=== PATIENT | male | born 1960 | race Two or more races ===

== ENCOUNTER 2017-05-28 15:20 | Inpatient (IN) | payer MEDICAID ==
[2017-05-28] MEDS ORDERED: NITROGLYCERIN OINT 2% 1 INCH PACKET TP ONE (15:44)
[2017-05-28] MEDS ORDERED: Aspirin 81mg Chewable Tab ONE (15:45)
--- NOTE | 2017-05-28 15:54 | ED Physician Chart ---
ED Chief Complaint/HPI - Patient Information Date Seen:: 05/28/17 Time Seen:: 15:10 History of Present Illness:: THIS 56-YEAR-OLD MALE PRESENTED TO THE EMERGENCY DEPARTMENT WITH PRECORDIAL CHEST PAIN THAT HAD STARTED ABOUT ONE HOUR PRIOR TO ADMISSION. HE RATED THE SEVERITY OF THE PAIN AN 8/10 AND STATED THAT IT LASTED FOR SOMEWHERE BETWEEN 3 TO 5 MINUTES BEFORE DISAPPEARING. THE PAIN DID NOT RADIATE TO THE NECK, LEFT SHOULDER OR INTO THE LEFT UPPER EXTREMITY. THERE WERE NO EXACERBATING OR RELIEVING FACTORS. THE QUALITY OF THE PAIN WAS BURNING. THE PATIENT HAD NO PRIOR HISTORY OF SIMILAR EPISODES. AT THE TIME OF ONSET THE PATIENT HAD BEEN DRINKING ALCOHOL AND SMOKING MARIJUANA. FOLLOWING THE ONSET OF THE PAIN THE PATIENT HAD PALPITATIONS OF HIS HEART ASSOCIATED WITH LIGHTHEADEDNESS. HE DENIED ANY NAUSEA, VOMITING, DIAPHORESIS OR DIFFICULTY BREATHING. HE HAS NO HISTORY OF PRIOR HEART PROBLEMS BUT DOES HAVE HYPERTENSION. HE DENIES SMOKING TOBACCO BUT DOES SMOKE MARIJUANA.. Allergies:: Allergies Allergy/AdvReac Type Severity Reaction Status Date / Time No Known Allergies Allergy Verified 05/28/17 15:44 Vitals:: Vital Signs - 8 hr 05/28/17 15:44 Temp 98.7 F HR 86 RR 25 BP 177/101 O2 Sat % 98 ED Review of Systems - Review of Systems General/Constitutional: No fever, No chills, No weight loss, Weakness, No diaphoresis, No edema, No loss of appetite Skin: No skin lesions, No rash, No bruising Head: No headache, Light headed Eyes: No loss of vision, No pain, No diplopia ENT: No earache, No sore throat, No tinnitus Neck: No neck pain, No swelling, No stiffness, No mass noted Cardio Vascular: Chest pain, Palpitations, No PND, No orthopnea, No edema Pulmonary: No SOB, No cough, No sputum, Other ( ON NO HEMOPTYSIS) GI: No nausea, No vomiting, No diarrhea, No pain, No constipation, No hematemesis G/U: No dysuria, No frequency, No hematuria Musculoskeletal: No bone or joint pain, No back pain, No muscle pain Endocrine: No polyuria, No polydipsia Psychiatric: No prior psych history ED Past Medical History - Past Medical History Past Medical History: HTN Family History: None Social History: Smoker, Alcohol, Illicit Drug Use, Single Surgical History: None Psychiatricy History: Depression Medication: None Family Medical History - Family Member Mother History Unknown: Yes ED Physical Exam - Physical Examination General/Constitutional: Awake, Well-developed, well-nourished, Alert, No distress, Non-toxic appearing, Ambulatory Other Gen/Cons comments:: ODOR OF ALCOHOL ON HIS BREATH. Head: Atraumatic Eyes: Lids, conjuctiva normal, PERRL, EOMI Skin: No rash, No skin lesions, No ecchymosis, Well hydrated, No lymphadenopathy Other Skin comments:: SKIN WARM AND DRY WITH NORMAL COLOR. NO CYANOSIS. NO PALLOR. ENMT: External ears, nose nl, Nasal exam nl, Lips, teeth, gums nl, Oropharynx nl , Tonsils nl Neck: Nontender, Full ROM w/o pain, No nuchal rigidity, No bruit, No stridor Respiratory: Nl effort/Exclusion, Clear to Auscultation, No Wheeze/Rhonchi/Rales Other Respiratory comments:: NO CHEST WALL TENDERNESS. GOOD BREATH SOUNDS BILATERALLY. Cardio Vascular: RRR, No murmur, gallop, rubs, NL S1 S2 Other Cardio Vascular comments:: STRONG PULSES IN ALL FOUR EXTREMITIES. NO PERIPHERAL EDEMA.. GI: No organomegaly, No hernia, Normal BS's, Nondistended, No mass/bruits Extremities: Full ROM, normal strength in all extremities, No edema Other Extremities comments:: NO PERIPHERAL EDEMA. NO CALF TENDERNESS. NEGATIVE GUNTER'S SIGN Neuro/Psych: Alert/oriented, Normal sensory exam, Normal motor strength, Mood normal, Normal gait, No focal deficits Misc: Normal back, No paraspinal tenderness ED Labs/Radiology/EKG Results - Lab Results Results: Laboratory Tests 05/28/17 05/28/17 05/28/17 15:30 15:30 15:30 WBC 7.2 RBC 3.89 L Hgb 14.8 Hct 43.5 MCV 111.9 H MCH 38.0 H MCHC Differential 34.0 RDW 16.0 Plt Count 329 MPV 6.6 Neutrophils % 66.4 Lymphocytes % 25.3 Monocytes % 5.6 Eosinophils % 2.6 Basophils % 0.1 Sodium 137 Potassium 3.2 L Chloride 104 Carbon Dioxide 24.9 Anion Gap 11.3 BUN 15 Creatinine 0.8 Est GFR ( Amer) > 60.0 Est GFR (Non-Af Amer) > 60.0 BUN/Creatinine Ratio 18.8 Glucose 142 H POC Glucose Calcium 9.5 Troponin I < 0.01 L Urine Opiates Screen Urine Methadone Screen Ur Barbiturates Screen Ur Tricyclics Screen Ur Phencyclidine Scrn Amphetamines Screen U Methamphetamines Scrn U Benzodiazepines Scrn U Cocaine Metab Screen U Cannabinoids Screen Ethyl Alcohol < 10 05/28/17 05/28/17 05/28/17 15:30 21:49 23:30 WBC RBC Hgb Hct MCV MCH MCHC Differential RDW Plt Count MPV Neutrophils % Lymphocytes % Monocytes % Eosinophils % Basophils % Sodium Potassium Chloride Carbon Dioxide Anion Gap BUN Creatinine Est GFR ( Amer) Est GFR (Non-Af Amer) BUN/Creatinine Ratio Glucose POC Glucose 109 H Calcium Troponin I < 0.01 L Urine Opiates Screen NEGATIVE Urine Methadone Screen NEGATIVE Ur Barbiturates Screen NEGATIVE Ur Tricyclics Screen NEGATIVE Ur Phencyclidine Scrn NEGATIVE Amphetamines Screen NEGATIVE U Methamphetamines Scrn NEGATIVE U Benzodiazepines Scrn NEGATIVE U Cocaine Metab Screen NEGATIVE U Cannabinoids Screen POSITIVE H Ethyl Alcohol 05/29/17 07:30 WBC RBC Hgb Hct MCV MCH MCHC Differential RDW Plt Count MPV Neutrophils % Lymphocytes % Monocytes % Eosinophils % Basophils % Sodium Potassium Chloride Carbon Dioxide Anion Gap BUN Creatinine Est GFR ( Amer) Est GFR (Non-Af Amer) BUN/Creatinine Ratio Glucose POC Glucose Calcium Troponin I < 0.01 L Urine Opiates Screen Urine Methadone Screen Ur Barbiturates Screen Ur Tricyclics Screen Ur Phencyclidine Scrn Amphetamines Screen U Methamphetamines Scrn U Benzodiazepines Scrn U Cocaine Metab Screen U Cannabinoids Screen Ethyl Alcohol EKG INTERPRETATIONS: NORMAL SINUS RHYTHM AT A RATE OF 80 AND WITHOUT ECTOPY. NORMAL IN INTERVAL. NORMAL QR MANDAEN. NORMAL QT INTERVAL. AXIS NORMAL. NO CUE WAVES. NORMAL OUR WEIGHT PROGRESSION LEADS THE ONE THROUGH THE FIVE. NORMAL APPEARING T WAVES. NO ST SEGMENT ELEVATION OR DEPRESSION. IMPRESSION: NO ACUTE ISCHEMIC FINDINGS. ED Assessment - Assessment General Assessment: CASE SUMMARY: THIS 56-YEAR-OLD MALE WITH A HISTORY OF HYPERTENSION PRESENTS TO THE EMERGENCY DEPARTMENT COMPLAINING OF PRECORDIAL CHEST PAIN WHICH WAS BURNING IN NATURE AND NONRADIATING. THERE WAS NO PLEURITIC COMPONENT TO THE PAIN. PATIENT DESCRIBED THE PAIN BEING ANYWHERE FROM 7 TO 9 SEVERITY WITH NO EXACERBATING OR LEAVING FACTORS. THE CARDIOVASCULAR EXAMINATION WAS NORMAL. THE EKG SHOWED NO EVIDENCE OF ACUTE ISCHEMIA. THE PATIENT'S SYMPTOMS WERE ADDRESSED WITH PO ASPIRIN AND BOTH SUBLINGUAL AND TRANSDERMAL MITRAL GLYCERIN. THE PATIENT 'S INITIAL BLOOD PRESSURE WENT FROM 177/101 DOWN TO 120/80 AFTER ASPIRIN AND NITROGLYCERIN ADMINISTRATION. THE PATIENT WAS PAIN-FREE AT THIS POINT IN TIME. THE INITIAL TROPONIN CAME BACK AT 0.01. THE CASE WAS DISCUSSED WITH DR. BURDICK WHO WILL ADMIT THE PATIENT FOR FURTHER EVALUATION AND TREATMENT INDICATED. MDM DDX CHEST PAIN: NOT AORTIC DISSECTION BASED ON THE PATIENT'S HISTORY AND PHYSICAL EXAMINATION AND HIS RESPONSE TO NITROGLYCERIN. NOT PERICARDITIS BASED ON THE HISTORY, PHYSICAL EXAMINATION AND EKG FINDINGS. NOT PNEUMONIA BASED ON THE PATIENT'S HISTORY, PHYSICAL EXAMINATION AND LABORATORY STUDIES. Critical Care Time: 45 MIN Excludes all billable procedures: Yes This condition life threatening/high prob of deterioration: Yes Assessment/Comments:: THE PATIENT HAD SEVERE ACUTE PRECORDIAL CHEST PAIN WHICH WAS ACCOMPANIED BY HYPERTENSION IN THE 180 RANGE. THE PAIN AND HYPERTENSION WERE TREATED WITH COMBINED SUBLINGUAL AND TRANSDERMAL NITROGLYCERIN. THE PATIENT EXPERIENCE COMPLETE RELIEF OF PAIN AND RETURN OF BLOOD PRESSURE TO WITHIN NORMAL PARAMETERS. PATIENT WILL BE ADMITTED FOR FURTHER DIAGNOSTIC STUDIES. ED Septic Shock - . Is Septic Shock (SBP<90, OR Lactate>4 mmol\L) present?: No - <6hrs of presentation: Vital Signs: Vital Signs - 8 hr 05/28/17 15:44 Temp 98.7 F HR 86 RR 25 BP 177/101 O2 Sat % 98 ED Reassessment (Disposition) - Reassessment Reassessment Condition:: Improved - Diagnosis Diagnosis:: ACUTE CHEST PAIN/RULE OUT CARDIAC ISCHEMIA. HYPERTENSION - Aftercare/Follow up Instructions Aftercare/Follow-Up Instructions:: Counseled pt regarding lab results/diagnosis & need follow up - Patient Disposition Discharge/Transfer:: Acute Care w/in this hosp () Accepting Physician:: DR. BURDICK ED Discharge Plan - Patient Disposition Admit/Discharge/Transfer: Acute Care w/in this hosp
[2017-05-28] MEDS ORDERED: NITROGLYCERIN SPRAY 4.9 GM SL STA (15:58)
[2017-05-28] MEDS ORDERED: Aspirin 81mg Chewable Tab PO STA (15:59)
[2017-05-28 16:08] LABS: EOSINOPHILE ABSOLUTE 0.2 Th/cmm (0.1-0.4); LYMPHOCYTE ABSOLUTE 1.8 Th/cmm (1.5-3.0); MEAN PLATELET VOLUME 6.6 fl; MONOCYTE ABSOLUTE 0.4 Th/cmm (0.3-1.0); PLATELET COUNT 329 Th/cmm (150-400)
[2017-05-28] MEDS ORDERED: NITROGLYCERIN SPRAY 4.9 GM SL ONE (16:10)
[2017-05-28 16:21] LABS: % BASOPHILS 0.1 % (0.0-2.0); % EOSINOPHILS 2.6 % (0.0-5.0); % LYMPHOCYTES 25.3 % (20.0-50.0); % MONOCYTES 5.6 % (2.0-10.0); % NEUTROPHILS 66.4 % (40.0-80.0); HEMATOCRIT 43.5 % (41.0-60); HEMOGLOBIN 14.8 gm/dL (12-16); NEUTROPHILE ABSOLUTE 4.8 Th/cmm (1.8-8.0); RED BLOOD COUNT 3.89 Mil/cmm (4.30-5.70); WHITE BLOOD COUNT 7.2 Th/cmm (4.8-10.8)
[2017-05-28 16:48] LABS: MEAN CELL VOLUME 111.9 fl (80-99)
[2017-05-28 21:25] LABS: ANION GAP 11.3 (7.0-16.0); BUN - UREA NITROGEN 15 mg/dL (7-25); CALCIUM SERUM 9.5 mg/dL (8.6-10.3); CARBON DIOXIDE 24.9 mEq/L (21.0-31.0); CHLORIDE 104 mEq/L (98-107); CREATININE - SERUM 0.8 mg/dL (0.7-1.3); GFR AFRICAN-AMERICAN > 60.0 ml/min (>90); GFR NON AFRICAN-AMERICAN > 60.0 ml/min; GLUCOSE 142 mg/dL (70-105); POTASSIUM SERUM 3.2 mEq/L (3.5-5.1); SODIUM SERUM 137 mEq/L (136-145)
[2017-05-28 22:47] LABS: AMPHETAMINE URINE NEGATIVE (NEGATIVE); BARBITURATES URINE NEGATIVE (NEGATIVE); BENZODIAZEPINES QUAL URINE NEGATIVE (NEGATIVE); CANNABINOID THC POSITIVE (NEGATIVE); COCAINE METABOLITE QUAL URINE NEGATIVE (NEGATIVE); METHADONE URINE NEGATIVE (NEGATIVE); METHAMPHETAMINES QUAL URINE NEGATIVE (NEGATIVE); OPIATES (MORPHINE) QUAL. URINE NEGATIVE (NEGATIVE); PHENCYCLIDINE (PCP) URINE NEGATIVE (NEGATIVE); TRICYCLICS (TCA) QUAL. URINE NEGATIVE (NEGATIVE)
[2017-05-29] MEDS ORDERED: Potassium Chloride 20 mEq ER Tab PO ONE (09:30)
[2017-05-29] MEDS: NIFEdipine 30 mg ER Tab PO SCH (16:57)
--- NOTE | 2017-05-29 23:07 | History & Physical ---
ADMIT DATE: 05/29/2017 CHIEF COMPLAINT: Chest pain and palpitations. HISTORY OF PRESENT ILLNESS: A 56-year-old male is [place] descent, [place] speaking, who was brought to Emergency Room for evaluation of chest pain and palpitations. So, the patient was subsequently admitted for further treatments. The patient is [place] speaking, a [place]-speaking hospital staff was in interpretation, the patient said that he was feeling more depressed and started drinking alcohol and had some smoke marijuana. After that, he felt dizzy, started having palpitations and chest pains. He was brought to the Emergency Room. The patient was evaluated in the Emergency Room and subsequently admitted to the hospital for treatment. Since morning, the patient feels much better. Denies any pain, no palpitations, no fever, no chills, no headache, no trouble breathing. The patient says he was feeling somewhat depressed yesterday. Denies any suicidal ideation or any plan. Denies any anxiety or any chronic mental history. The patient does not have any outside primary care physicians. PAST MEDICAL HISTORY: Denies any past history. PAST SURGICAL HISTORY: Denies any past surgery. FAMILY HISTORY: Denies any family history. SOCIAL HISTORY: Lives at home. Daily tobacco smoking. Denies any alcohol or street drug use. CURRENT MEDICATIONS: Celexa, Procardia, Zofran, tramadol. REVIEW OF SYSTEMS: per HPI, a 12-point system appears negative. PHYSICAL EXAMINATION: VITAL SIGNS: Temperature 98.1, pulse 65, respirations 18, blood pressure 150/88, oxygen % room air, pain 0/10. GENERAL APPEARANCE: The patient does not seem in acute distress. HEART: S1, S2 is normal. LUNGS: Clear to auscultation bilaterally. ABDOMEN: Soft. EXTREMITIES: No edema, no calf tenderness noted. AVAILABLE LABORATORY DATA: Has been reviewed. ASSESSMENT: 1. Chest pain, palpitations, acute coronary syndrome ruled out. So far negative troponin. 2. Hypertension. 3. Nicotine dependency. 4. Marijuana use. 5. Depression. PLAN: The patient admitted to tele unit. Cardiology was consulted. Cardiac workup has been initiated. Echo troponins ordered. Echo results pending. Seen by Cardiology. No further cardiac workup was any recommended. Troponins are so far negative. Smoking cessation is advised and marijuana advised. Celexa 10 mg was started. Psych was consulted. Plan of care discussed with the patient through engineering geologist plus the nursing staff. JOB# [id number]
--- NOTE | 2017-05-30 08:21 | Consultation ---
DATE OF CONSULTATION: 05/29/[address] Bubba Lee HISTORY OF PRESENT ILLNESS: This is a 56-year-old male patient who had been complaining of chest pain. Following this, the patient was brought to the Emergency Room. The patient has been drinking alcohol, and taking marijuana. Following this, the patient developed chest pain, palpitation. No history of PND, orthopnea. PAST MEDICAL HISTORY: Hypertension, alcohol addict, marijuana addict. FAMILY HISTORY: Unremarkable. SOCIAL HISTORY: The patient has a history of alcohol addiction as well as marijuana. PHYSICAL EXAMINATION: VITAL SIGNS: Blood pressure 150/90, pulse 70, and respirations 20. HEAD: Normocephalic. No lumps or bumps. EYES: Pupils equal, reactive to light. Fundi show AV nicking, sclerae white, conjunctivae pink. NECK: Carotid 2+. Normal upstroke. JVD flat. Thyroid not palpable. Lymph nodes not palpable. CHEST: Shows increased AP diameter. No kyphosis, scoliosis. LUNGS: Bilateral bronchovesicular breath sounds. HEART: PMI fifth intercostal space with lateral to midclavicular line. S1, S2. No S3, S4, soft systolic murmur. ABDOMEN: Soft. Liver, spleen not palpable. No organomegaly. Bowel sounds active. NEUROLOGIC: Unremarkable. EXTREMITIES: Peripheral pulses 2+. No pedal edema. The patient has costochondritis of the second and third ribs. CLINICAL IMPRESSION: Chest pain, costochondritis, hypertension uncontrolled, palpitation secondary to alcohol intoxication, history of alcohol addiction and marijuana addiction. PLAN: The patient to admit, get troponin level. We will control the blood pressure and monitor the patient. Also get an echocardiogram. JOB# [id number]
[2017-05-30] MEDS: NIFEdipine 30 mg ER Tab PO SCH (08:32)
--- NOTE | 2017-05-30 14:08 | General Progress Note ---
Subjective - Review of Systems Service Date: 05/30/17 Subjective: Patient feels much better denied any complaints. [place] speaking hospital staff was used for communication Objective - Results Result Diagrams: 05/28/17 15:30 05/28/17 15:30 Recent Labs: Laboratory Last Values WBC 7.2 Th/cmm (4.8-10.8) 05/28/17 15:30 RBC 3.89 Mil/cmm (4.30-5.70) L 05/28/17 15:30 Hgb 14.8 gm/dL (12-16) 05/28/17 15:30 Hct 43.5 % (41.0-60) 05/28/17 15:30 MCV 111.9 fl (80-99) H 05/28/17 15:30 MCH 38.0 pg (26.0-30.0) H 05/28/17 15: MCHC Differential 34.0 pg (28.0-36.0) 05/28/17 15: RDW 16.0 % (11.5-20.0) 05/28/17 15: Plt Count 329 Th/cmm (150-400) 05/28/17 15:30 MPV 6.6 fl 05/28/17 15:30 Neutrophils % 66.4 % (40.0-80.0) 05/28/17:30 Lymphocytes % 25.3 % (20.0-50.0) 05/28/17 15:30 Monocytes % 5.6 % (2.0-10.0) 05/28/17: Eosinophils % 2.6 % (0.0-5.0) 05/28/17: Basophils % 0.1 % (0.0-2.0) 05/28/17 15:30 Sodium 137 mEq/L (136-145) 05/28/17 15:30 Potassium 3.2 mEq/L (3.5-5.1) L 05/28/17 15: Chloride 104 mEq/L (98-107) 05/28/17 15:30 Carbon Dioxide 24.9 mEq/L (21.0-31.0) 05/28/17 15:30 Anion Gap 11.3 (7.0-16.0) 05/28/17 15:30 BUN 15 mg/dL (7-25) 05/28/17 15:30 Creatinine 0.8 mg/dL (0.7-1.3) 05/28/17 15:30 Est GFR ( Amer) > 60.0 ml/min (>90) 05/28/17 15:30 Est GFR (Non-Af Amer) > 60.0 ml/min 05/28/17 15:30 BUN/Creatinine Ratio 18.8 05/28/17 15:30 Glucose 142 mg/dL (70-105) H 05/28/17 15:30 POC Glucose 109 MG/DL (70 - 105) H 05/28/17 21:49 Calcium 9.5 mg/dL (8.6-10.3) 05/28/17 15:30 Troponin I < 0.01 ng/mL (0.01-0.05) L 05/29/17 07:30 Urine Opiates Screen NEGATIVE (NEGATIVE) 05/28/17 15:30 Urine Methadone Screen NEGATIVE (NEGATIVE) 05/28/17 15:30 Ur Barbiturates Screen NEGATIVE (NEGATIVE) 05/28/17 15:30 Ur Tricyclics Screen NEGATIVE (NEGATIVE) 05/28/17 15:30 Ur Phencyclidine Scrn NEGATIVE (NEGATIVE) 05/28/17 15:30 Amphetamines Screen NEGATIVE (NEGATIVE) 05/28/17 15:30 U Methamphetamines Scrn NEGATIVE (NEGATIVE) 05/28/17 15:30 U Benzodiazepines Scrn NEGATIVE (NEGATIVE) 05/28/17 15:30 U Cocaine Metab Screen NEGATIVE (NEGATIVE) 05/28/17 15:30 U Cannabinoids Screen POSITIVE (NEGATIVE) H 05/28/17 15:30 Ethyl Alcohol < 10 mg/dL (0-10) 05/28/17 15:30 - Physical Exam Vitals and I&O: Vital Signs Temp 97.2 F 05/30/17 11:31 Pulse 68 05/30/17 11:31 Resp 17 05/30/17 12:00 BP 137/87 05/30/17 11:31 Pulse Ox 99 05/30/17 11:31 Intake & Output 05/29/17 05/30/17 05/30/17 18:59 06:59 18:59 Intake Total 1100 100 Balance 1100 100 Weight (lbs) 90.265 kg 90.265 kg Intake: Oral 1100 100 Tube Feeding 0 Other: # Voids 3 1 # Bowel Movements 1 0 Stool Characteristics Formed Active Medications: Current Medications Acetaminophen (Tylenol) 650 mg PO Q6H PRN PRN Reason: Pain (Moderate) Stop: 07/27/17 19:44 Citalopram Hydrobromide (Celexa) 10 mg PO DAILY TIM PRN Reason: Protocol Stop: 07/29/17 08:59 Last Admin: 05/30/17 08:32 Dose: 10 mg Hydralazine HCl (Apresoline 20 Mg/Ml) 10 mg IV Q6H PRN PRN Reason: SBP >180 Stop: 07/27/17 19:44 Nifedipine (Procardia Xl) 30 mg PO DAILY [facility] Stop: 07/28/17 15:59 Last Admin: 05/30/17 08:32 Dose: 30 mg Ondansetron HCl (Zofran) 4 mg IV Q6H PRN PRN Reason: Nausea / Vomiting Stop: 07/27/17 19:32 Tramadol HCl (Ultram) 50 mg PO Q6H PRN PRN Reason: Pain (Severe) Stop: 07/27/17 19:44 Cardiovascular: Regular rate Lungs: Clear to auscultation Assessment/Plan - Problem List Patient Problems: All Active Problems PALPATATIONS, DIZZINESS AND CHEST PAIN (Acute) - Assessment Assessment: Atypical chest pain Palpitation improved HTN Depression - Plan Plan: Patient better DC home today Patient was highly advised to establish care with PRIMARY MD and have follow up in 1-2 weeks. He understood well
--- NOTE | 2017-05-30 15:46 | Cardiology ---
05/29/[address] Rosa Mac. PROCEDURE: Echocardiogram. M-MODE ECHOCARDIOGRAM: Mitral valve, anterior leaflet of mitral valve shows normal excursion, EF velocity. Posterior leaflet of mitral valve shows normal excursion. Left ventricle posterior wall shows increased thickness, normal excursion. Interventricular septum shows increased thickness, normal excursion, hypertrophy of the left ventricle, ejection fraction 55%. Left atrium normal. Aortic root shows normal dimension, normal excursion of aortic leaflets. CONCLUSION: Minimal hypertrophy of the left ventricle, ejection fraction 55%. 2D ECHO: Long axis view showed normal sized left ventricle with minimal hypertrophy of the left ventricle. Left atrium normal. Aortic root shows normal dimension, normal excursion of aortic leaflets. Short axis view of mitral valve normal. Short axis view of aortic valve normal. Apical four chamber view showed normal sized left ventricle with minimal hypertrophy of the left ventricle. Left atrium normal. Right ventricular cavity, right atrium normal. No pericardial effusion. CONCLUSION: Minimal hypertrophy of the left ventricle, ejection fraction 55%. Doppler study shows mild tricuspid regurgitation, mild pulmonary regurgitation. [facility]# [id number]
--- NOTE | 2017-06-08 18:11 | Discharge Summary ---
DATE OF DISCHARGE: 05/30/2017 FINAL DIAGNOSES: 1. Chest pain, acute coronary syndrome ruled out. 2. Hypertension. 3. Nicotine dependency. 4. Marijuana use. 5. Depression. HOSPITAL COURSE: This is a 56-year-old male who was admitted for evaluation of chest pain, palpitations. The patient admitted on tele unit. Cardiology was consulted. Serial troponins were obtained. Echocardiogram was ordered. Serial troponins were negative for an acute significant findings. During the hospitalization, the patient reported that he was depressed and was drinking alcohol and smoking marijuana. The patient was started on Celexa. Cardiology followed the patient closely during the hospitalization and was cleared for discharge with the atypical chest pain diagnosis. The patient was discharged home with the appropriate prescription. The patient was highly advised to establishing care with a primary MD and follow in 1-2 weeks. The patient also advised if symptoms reoccur, need to come back to the Emergency Room. During my all encounter with the patient, [place] speaking, hospital staff was used for communication. DISCHARGE CONDITION: Stable. DISCHARGE MEDICATIONS: Please see medication reconciliation list. DISCHARGE INSTRUCTION: The patient was advised to follow up with the primary MD in 1-2 weeks. [facility]# [id number]
== END 2017-05-30 14:55 | disposition home or self-care (01) | DRG 203 ==
LOC: ER 15:20 → TELE 18:00
PROVIDERS: ADMIT Family Medicine; ATTEND Family Medicine
DX: R07.89 Other chest pain (principal); F10.229 Alcohol dependence with intoxication, unspecified; M94.0 Chondrocostal junction syndrome [Tietze]; F12.90 Cannabis use, unspecified, uncomplicated; I10 Essential (primary) hypertension; F32.9 Major depressive disorder, single episode, unspecified; F17.200 Nicotine dependence, unspecified, uncomplicated
CPT/HCPCS: 36415-UA; 80048-TC; 80307; 80320-TC; 82948-90; 84484-TC; 85025-TC; 93005; Z7502; Z7610